=== PATIENT | male | born 1965 | race Caucasian/White ===

== ENCOUNTER 2019-06-10 06:00 | Emergency (ER) | payer OTHER ==
--- NOTE | 2019-06-10 06:02 | PDOC ---
History of Present Illness - General Chief Complaint: Rash Stated Complaint: RASH Time Seen by Provider: 06/10/19 06:02 - History of Present Illness Initial Comments: 06/10/19 06:25 This 53-year-old man with a history of HLD but no other significant chronic illness presents with 12 hour history of pruritic rash consistent with urticaria. Patient states that he noted rash in last evening several hours after eating dinner (no new food consumed). No exposure to new food/medication/ supplements or vitamins. No new topical preparation noted. Patient took 50 milligrams of Benadryl by mouth last night at approximately 11 PM. No difficulties overnight but noted somewhat of an increase in the rash's morning. Patient did not repeat dosing of Benadryl this a.m.. He denies lip/tongue swelling, difficulty swallowing or difficulty breathing. No wheezing has occurred. He denies any recent febrile illness. He was recently in [place], traveling home 72 hours ago but cannot recall any unusual exposure. Patient has no known ALLERGIES to medications or foods Patient denies tobacco smoking; has occasional marijuana/ethanol use. No other recreational drug use The patient has been taking Crestor for his hyperlipidemia for one month; no other medications taken Past History - Past Medical History Allergies/Adverse Reactions: Allergies Allergy/AdvReac Type Severity Reaction Status Date / Time No Known Allergies Allergy Verified 09/23/16 09:45 Home Medications: Ambulatory Orders Crestor 06/10/19 - Suicide/Smoking/Psychosocial Hx Smoking History: Never smoked Hx Alcohol Use: Yes Drug/Substance Use Hx: No Substance Use Type: Alcohol Review of Systems - Review of Systems Able to Perform ROS?: Yes Comments:: 12 point review of systems is negative except for what is noted in the history of present illness *Physical Exam - Physical Exam Comments: GENERAL: Adult male, alert and oriented 3, in no respiratory distress HEAD: Normal with no signs of trauma. EYES: PERRLA, EOMI, sclera anicteric, conjunctiva clear. ENT: Ears normal, nares patent, oropharynx clear without exudates. Dry mucous membranes. No lip/tongue/uvular edema NECK: Normal range of motion, supple without lymphadenopathy, JVD, or masses. No stridor LUNGS: Breath sounds equal, clear to auscultation bilaterally. No wheezes, and no crackles. HEART:Regular rate and rhythm, normal S1 and S2 without murmur, rub or gallop. NEUROLOGICAL: Cranial nerves II through XII grossly intact. Normal speech. No focal neurological deficits. SKIN: Scattered erythematous maculopapular rash involving neck, anterior chest/ abdomen, all 4 extremities. Very little rash seen on face or neck. No vesicular or pustular lesions seen. No confluence of maculopapular lesions seen. Medical Decision Making - Medical Decision Making 53-year-old man with a history of HLD but no previous history of ALLERGIC reaction presents with 12 hour history of generalized rash consistent with urticaria. No edema of upper airway; no difficulty swallowing or breathing. Exam as noted above. No evidence of anaphylactic type ALLERGIC reaction. Allergen which caused the urticaria is unclear at this point. It was explained to the patient that infectious etiology of urticaria also is possible as is not finding the actual cause of the reaction. the patient does not appear to need steroids at this point but he should return or see his doctor if rash becomes more widespread or itching is severe. He should return to the ER immediately if he has any lip/tongue swelling or has sensation of difficulty swallowing or breathing. The patient states that he is very aware of anaphylactic reaction symptoms since he has a son who has a peanut ALLERGY. Patient should continue antihistamines over the next few days (either Benadryl or nonsedating). He should plan on following up with his general medical doctor within this period of time. He should also consider consultation with an mobile application engineer (family is followed by an mobile application engineer in [place]). Reasons for returning to the ER immediately were reviewed with the patient. *DC/Admit/Observation/Transfer Diagnosis at time of Disposition: Urticaria - Discharge Dispostion Disposition: HOME Condition at time of disposition: Stable - Referrals Referrals: Peyman Guthrie MD [Primary Care Provider] - - Patient Instructions Printed Discharge Instructions: Unique Additional Instructions: Benadryl 25-50 mg every 6 hours as needed for itching Can also use nonsedating antihistamine such as Claritin or Zyrtec as needed for itching Return to ER immediately if you have lip/tongue swelling or difficulty swallowing/breathing Follow-up with your doctor or return to ER if you have more widespread rash/ severe itching Consider follow-up consultation with mobile application engineer as discussed - Post Discharge Activity
[2019-06-10 06:12] VITALS: BP 122/78; PULSE 67; TEMP 97.7; BMI 25.0
== END 2019-06-10 06:25 | disposition home or self-care (01) ==
LOC: FER 06:00
DX: L50.9 Urticaria, unspecified (principal); E78.5 Hyperlipidemia, unspecified
CPT/HCPCS: 99281-25